=== PATIENT | female | born 1955 | race Caucasian/White ===

== ENCOUNTER 2019-01-05 20:43 | Emergency (ER) | payer MEDICAID ==
[~2019-01-05] VITALS: Ht 152.4 cm; Wt 77.1 kg
[2019-01-05 20:48] VITALS: BP_SYST 141
--- NOTE | 2019-01-05 21:53 | NUR ---
Patient to ER bed 7 to gown for evaluation. Side rails up. Report given to Violeta AMBRIZ.
--- NOTE | 2019-01-05 22:00 | NUR ---
Patient brought to ER by son for complaint of pruritus to scalp x1 week. Patient states she recently used dye on hair. No other symptoms or complaints. and son at bedside.
--- NOTE | 2019-01-05 22:07 | NUR ---
ER MD Yanes at bedside for medical evaluation.
[2019-01-05] MEDS ORDERED: DIPHENHYDRAMINE HCL 25 MG CAPSULE PO ONE (22:15)
--- NOTE | 2019-01-05 23:00 | NUR ---
No adverse reactions noted after medication administration. Will continue to monitor.
[2019-01-05 23:31] VITALS: BP_SYST 128
--- NOTE | 2019-01-05 23:31 | NUR ---
Patient given written and verbal discharge instructions and verbalizes understanding. ER MD discussed with patient the results and treatment provided. Patient in stable condition. ID arm band removed. Rx of Benadryl and Prednisone given. Patient educated on pain management and to follow up with PMD. Pain Scale 0/10. Opportunity for questions provided and answered. Medication side effect fact sheet provided.
== END 2019-01-05 23:31 | disposition home or self-care (01) ==
LOC: SED 20:43
DX: L25.9 Unspecified contact dermatitis, unspecified cause (principal)
CPT/HCPCS: 99283; Q0163